=== PATIENT | male | born 1975 | race Caucasian/White ===

== ENCOUNTER 2018-03-23 15:45 | Emergency (ER) | payer SELFPAY ==
[2018-03-23 16:11] LABS: #Lymphocytes 1.7 thou/uL (1.20-3.40); #Monocytes 0.5 thou/uL (0.11-0.59); #Neutrophils 8.6 thou/uL (1.40-6.50); %Basophils 0.4 % (0.0-1.0); %Eosinophils 0.4 % (0.0-10.0); %Lymphocytes 15.9 % (21.0-51.0); %Monocytes 4.9 % (0.0-10.0); %Neutrophils 78.4 % (42.0-75.0); Hemoglobin 15.3 g/dL (14.0-18.0); Mean Corpuscular HGB CONC 34.3 g/dL (32.0-36.0); Mean Corpuscular Hemoglobin 30.6 pg (27.0-31.0); Mean Corpuscular Volume 89.1 fl (80.0-94.0); Platelet Count 263 thou/uL (130-400); RBC Distribution Width 12.1 % (11.5-14.5); White Blood Cell (WBC) Count 10.9 thou/uL (4.8-10.8)
[2018-03-23 16:32] LABS: ALT (SGPT) 20 U/L (8-55); AST (SGOT) 24 U/L (5-34); Albumin 4.5 g/dL (3.5-5.0); Alkaline Phosphatase 53 U/L (40-150); Anion Gap 10 mmol/L (10-20); BUN (Urea Nitrogen) 15 mg/dL (8.9-20.6); Bilirubin, Total 0.8 mg/dL (0.2-1.2); Calc. Creatinine Clearance 0 mL/min (70-130); Calcium 9.3 mg/dL (7.8-10.44); Carbon Dioxide 26 mmol/L (22-29); Chloride 107 mmol/L (98-107); Estimated GFR-MDRD 56; Globulin 2.8 g/dL (2.4-3.5); Glucose 99 mg/dL (70-105); Protein, Total 7.3 g/dL (6.0-8.3); Sodium 139 mmol/L (136-145)
--- NOTE | 2018-03-23 17:20 | RAD ---
LEFT SHOULDER TWO VIEWS: HISTORY: Pain. Fall. FINDINGS: Comminuted proximal humeral fracture. There is associated deformity and angulation. IMPRESSION: Proximal humerus fracture. POS: [facility]
--- NOTE | 2018-03-23 17:22 | RAD ---
CHEST ONE VIEW: HISTORY: Fall. Pain. COMPARISON: None. FINDINGS: Normal cardiac silhouette. The pulmonary vessels and hilum are normal. The costophrenic angles are clear. No masses or consolidation. No pneumothorax. Left humerus fracture is noted. IMPRESSION: 1. No acute cardiopulmonary process. 2. Proximal left humeral fracture. POS: [facility]
[2018-03-23] MEDS ORDERED: Ketorolac Tromethamine 60 MG/2 ML VIAL ONE (17:41)
--- NOTE | 2018-03-23 17:42 | CT ---
CT CERVICAL SPINE WITHOUT CONTRAST: HISTORY: Pain. Injury. COMPARISON: None. TECHNIQUE: A CT of the cervical spine is performed without contrast. Reformatted images are submitted for inter pretation. FINDINGS: There is straightening of the normal cervical lordosis, which may be due to patient positioning, musc le spasm, or a cervical collar. The current study is not tailored to assess for ligamentous injury. There is mild central canal stenosis at multiple levels due to disk osteophyte complexes. Evaluatio n is limited by technique. The largest disk osteophyte complex is at C3-C4. Evaluation of the sanam giovani is limited by technique. Soft tissue neck structures are unremarkable. No prevertebral soft tis carmela swelling. The upper mediastinum and lung apices are also unremarkable for acute post traumatic change. The lateral masses of C1 and C2 and the facets articular appropriately. The odontoid process is inta ct. No craniocervical dissociation. Cervical spine vertebral body height is maintained. No fracture. IMPRESSION: 1. No fracture. 2. Straightening of normal cervical lordosis, as defined above. MRI if clinically warranted. POS: [facility]
== END 2018-03-23 18:54 | disposition home or self-care (01) ==
LOC: ERS 15:45
DX: S42.202A Unspecified fracture of upper end of left humerus, initial encounter for closed fracture (principal); W17.89XA Other fall from one level to another, initial encounter
CPT/HCPCS: 36415; 71045; 72125; 80053; 85025; 96372; J1885

== ENCOUNTER 2018-03-31 06:25 | Day surgery (SDC) | payer OTHER ==
[2018-03-27 08:40] VITALS: BMI 24.2
[2018-03-31] MEDS ORDERED: Fentanyl 250 MCG/5 ML VIAL ONE (08:55)
[2018-03-31] MEDS ORDERED: Midazolam HCl 2 mg/2 ml Vial ONE (08:55)
[2018-03-31] MEDS ORDERED: Lidocaine 2% Jelly 5 ML TUBE ONE (08:55)
[2018-03-31] MEDS ORDERED: CEFAZOLIN/Water 2 GM/20 ML SYRINGE ONE (09:13)
[2018-03-31] MEDS ORDERED: HYDROmorphone 0.5 MG/0.5 ML SYRINGE ONE ×2 (10:02→11:44)
[2018-03-31] MEDS ORDERED: Fentanyl 100 MCG/2 ML VIAL ONE ×2 (12:25→12:44)
--- NOTE | 2018-03-31 12:37 | OP ---
DATE OF SERVICE: 03/31/2018 PREOPERATIVE DIAGNOSIS: Left anatomic neck proximal humerus fracture. POSTOPERATIVE DIAGNOSIS: Left anatomic neck proximal humerus fracture. PROCEDURE PERFORMED: Intramedullary nailing, left proximal humerus fracture. STAFF: Gurinder Mclain M.D. GLASS MELT OPERATOR: Johnny Corley PA-C. ANESTHESIA: Vakey. The patient received general endotracheal intubation. ESTIMATED BLOOD LOSS: 250 mL. TOURNIQUET TIME: None. IMPLANTS: A [employer] 9.5 titanium multi-lock proximal humeral nail, 160 mm with three 4.5 titanium multi-lock screws 42, 44 and 44 mm length and two 4.0 titanium cortical distal locking screws and a titanium multi-lock end-cap. ANTIBIOTICS: Ancef 2 grams. COMPLICATIONS: None. HISTORY OF PRESENT ILLNESS: Mr. Palomo is a 43-year-old male who fell from the ceiling onto his left shoulder. He is right hand dominant. He works in construction. I discussed with the patient the risks and benefits of a left proximal humeral nail to include pain, scar, bleeding, infection, damage to vital structures to include the axillary nerve, stretch injury, need for further procedures, failure of procedure despite surgical intervention. The patient understood the risks and benefits of procedure and elected to proceed. PROCEDURE IN DETAIL: Timeout was performed designating the patient's left upper extremity as the operative site based on sight, consents and marking. After completion of timeout, the patient's left upper extremity was prepped and draped in sterile fashion. We took AP and lateral view of the humerus, acute position in the center of the head. We then made an incision like an open rotator cuff obliquely over the patient's anterior and medial heads of the deltoid down through skin, created skin edges. Came down on top of the acromion , took the anterior aspect of the acromion and released the deltoid from the acromion, created a flap posteriorly. I rongeured a piece of the anterior acromion off to help with positioning for our nail placement as well as help to pass the sutures back to repair the deltoid. We split distally. I marked on the skin edge 5 cm distance. We dissected bluntly by spreading distally. I could feel the nerve at approximately 6 cm. The anterior branch of the axillary nerve which was intact. We then moved back to the humerus under fluoroscopic guidance, our tip guidewire to place our center position, I had move it about 2 times to find a position I liked. After doing this and finding a position that I wanted, I cut in line with the fibers of the rotator cuff about a 2 cm cut through the rotator cuff. We then drilled opening the hole for the nail. We passed our nail. We passed our guidewire down the fracture ensuring it was in bone on AP and lateral radiographs, we reamed up to a size 10.5 rate and placed a 9.5 nail, which passed easily. With passing down into place we looked at our zero start point to ensure that we were buried within the cartilage, but in the position that we liked. We had reduced the fracture. He had a slight apex anterior deformity, but otherwise had no obvious varus valgus position. I liked the overall alignment. We then pinned our anterior most hole or D-hole just off the bicipital groove as per the technique guide. We ensured the hand was approximately at neutral and we internally rotated the defect to help with our position, we then drilled our center hole, tapped and it was slightly short. We over drilled the outer cortex to help to pass the lineman to bone to screw into the bone. We did this 3 times in our proximal A, B and D holes. We ensured that they were buried, I liked the overall alignment of the head. We then moved distally. We impacted our bone back with our impactor holding the elbow to help with apposition of the bone to ensure we had cortical contact. We then used our trocars and our distal screws to bluntly dissect down to bone, passed our trocars onto bone to ensure we were directly on bone on both screw holes, drill and fill the screws. We ensured that the J was pointing to approximately 30 degrees retroversion with the arm in essentially neutral, drilled passed both screws, washed. We closed the rotator cuff with 0 Vicryl [id number]-[id number] stitches, 3 stitches to close the linear incision after we placed our end cap. I closed the deltoid remnant by passing a W stitch and passing it through the acromion to sew that I put back on with 2 W stitches. I then used a running #2 Ethibond to sew the deltoid fascia up. I then closed the subq with 2-0 and irma. We closed distally with 2-0 and irma. The patient will be placed in a sling. He will be elbow, wrist, and hand motion and isometrics. He will use [place] for pain relief. I will follow him up in 2 weeks to remove irma and begin range of motion. LINDSEY
--- NOTE | 2018-03-31 12:54 | RAD ---
LEFT HUMERUS TWO VIEWS: HISTORY: Intraoperative films. FINDINGS: These C-arm images show intramedullary ney placement stabilizing a humeral neck fracture in satisfact ory position. IMPRESSION: Open reduction and internal fixation of humeral neck fracture. POS: [facility]
[2018-03-31] MEDS ORDERED: Lidocaine 1% PF 5 ML VIAL ONE (16:06)
[2018-03-31] MEDS ORDERED: Glycopyrrolate 0.2 MG/ML 5 ML SYRINGE ONE (16:06)
[2018-03-31] MEDS ORDERED: Ondansetron HCl/PF 4 MG/2 ML Vial ONE (16:06)
[2018-03-31] MEDS ORDERED: PROPOFOL 200 MG/20 ML VIAL ONE (16:06)
[2018-03-31] MEDS ORDERED: ePHEDrine/0.9% NaCl/PF SYRINGE 50 mg/10 ml ONE (16:06)
[2018-03-31] MEDS ORDERED: Dexamethasone 20 MG/5 ML VIAL ONE (16:06)
[2018-03-31] MEDS ORDERED: Bupivacaine HCl 0.5%/Epinephrine 1:200,000/PF 30 ml Vial ONE (16:25)
== END 2018-03-31 16:30 | disposition home or self-care (01) ==
LOC: SDC 06:25
PROVIDERS: ATTEND Orthopaedic Surgery
PROC: 0PSD04Z Reposition Left Humeral Head with Internal Fixation Device, Open Approach (ICD-10-PCS; principal; 2018-03-31)
DX: S42.292A Other displaced fracture of upper end of left humerus, initial encounter for closed fracture (principal); W13.2XXA Fall from, out of or through roof, initial encounter; Y93.H3 Activity, building and construction; Y99.0 Civilian activity done for income or pay
CPT/HCPCS: 76001; 96374; C1713; C1769; G8984-GP-CK; G8985-GP-CK; G8986-GP-CK; J0670; J1100; J1170; J2001; J2250; J2405; J2704; J3010